=== PATIENT | male | born 1985 | race Caucasian/White ===

== ENCOUNTER 2020-01-10 15:52 | Emergency (ER) | payer SELFPAY ==
--- NOTE | 2020-01-10 16:42 | NUR ---
NO ANSWER X1
--- NOTE | 2020-01-10 16:59 | NUR ---
NO ANSWER X2
--- NOTE | 2020-01-10 17:11 | NUR ---
NO ANSWER TO TRIAGE.
== END 2020-01-10 17:33 | disposition left against medical advice (07) ==
LOC: ED 16:00
DX: T15.91XA Foreign body on external eye, part unspecified, right eye, initial encounter (principal); Z53.21 Procedure and treatment not carried out due to patient leaving prior to being seen by health care provider; X58.XXXA Exposure to other specified factors, initial encounter; Y93.89 Activity, other specified; Y92.89 Other specified places as the place of occurrence of the external cause; Y99.8 Other external cause status